=== PATIENT | female | born 1965 | race Caucasian/White ===

== ENCOUNTER 2017-02-05 08:37 | Emergency (ER) | payer MEDICAID ==
[~2017-02-05] VITALS: Ht 160 cm; Wt 88.0 kg
[~2017-02-05 08:37] MED LIST: AUG875 PO; IBUP-1542 PO
[2017-02-05 08:42] VITALS: Ht 160 cm; Wt 88.0 kg
[2017-02-05] MEDS ORDERED: ONDANSETRON (ODT) 4 MG TAB ODT STA (09:09)
[2017-02-05 09:27] LABS: ABNORMAL IP MESSAGE 1; BASOPHIL # 0.1 10^3/ul (0.0-0.1); EOSINOPHILS # 1.5 10^3/ul (0.0-0.5); HEMATOCRIT 34.5 % (37.0-47.0); HEMOGLOBIN 9.5 g/dl (12.0-16.0); LYMPHOCYTES % 21.9 % (15.0-51.0); MEAN CORPUSCULAR HEMOGLOBIN 17.8 pg (29.0-33.0); MEAN CORPUSCULAR HGB CONC 27.5 g/dl (32.0-37.0); MEAN CORPUSCULAR VOLUME 64.5 fl (82.0-101.0); MEAN PLATELET VOLUME 9.1 fl (7.4-10.4); MONOCYTE # 0.9 10^3/ul (0.3-0.9); NEUTROPHIL # 4.5 10^3/ul (1.6-7.5); NEUTROPHILS % 49.9 % (39.0-77.0); PLATELET COUNT 443 10^3/UL (140-415); RED BLOOD COUNT 5.35 10^6/ul (4.20-5.40); RED CELL DISTRIBUTION WIDTH 19.3 % (11.5-14.5); WHITE BLOOD COUNT 8.9 10^3/ul (4.8-10.8)
[2017-02-05 09:29] LABS: POSITIVE DIFF @See below
[2017-02-05 09:30] LABS: ADD UMIC NO; UR ASCORBIC ACID NEGATIVE (NEGATIVE); UR BILIRUBIN (Dip) NEGATIVE (NEGATIVE); UR BLOOD (Dip) NEGATIVE (NEGATIVE); UR CLARITY CLEAR (CLEAR); UR COLOR YELLOW (YELLOW); UR GLUCOSE (Dip) NEGATIVE (NEGATIVE); UR KETONES (Dip) NEGATIVE (NEGATIVE); UR LEUKOCYTE ESTERASE (Dip) NEGATIVE Leu/ul (NEGATIVE); UR NITRITE (Dip) NEGATIVE (NEGATIVE); UR SPECIFIC GRAVITY (Dip) 1.021 (1.003-1.030); UR TOTAL PROTEIN (Dip) NEGATIVE (NEGATIVE); UR UROBILINOGEN (Dip) NEGATIVE (NEGATIVE)
[2017-02-05] MEDS ORDERED: traMADol 50 MG TAB PO ONE (09:30)
--- NOTE | 2017-02-05 09:41 | ERD ---
ER Documentation Chief Complaint Chief Complaint Abdominal pain, nausea, vomiting HPI 51-year-old female presents with suprapubic pelvic pain associated nausea vomiting on and off for a week. Patient describes sharp pain is localized in the center of her lower abdominal region, she describes it to be pelvic pain. She reports nausea with intermittent nausea vomiting approximately 1 time a day for the last 4 days. She denies fevers or chills. She denies diarrhea, blood in stools. She denies vaginal bleeding, or abnormal vaginal discharge. ROS All systems reviewed and are negative except as per history of present illness. Medications Home Meds Active Scripts Ibuprofen* (Motrin*) 600 Mg Tab, 600 MG PO Q6, #30 TAB Prov:MIN VALENTINO PA-C 02/05/17 Ondansetron (Ondansetron Odt) 4 Mg Tab.rapdis, 4 MG PO Q6H Y for NAUSEA AND/OR VOMITING, #10 TAB Prov:MIN VALENTINO PA-C 02/05/17 Ferrous Sulfate* (Ferrous Sulfate*) 325 Mg Tabec, 325 MG PO BID, #100 TAB Prov:MIN VALENTINO PA-C 02/05/17 Amoxicillin-Clavulanate K* (Augmentin*) 875 Mg Tab, 875 MG PO BID for 5 Days, TAB Prov:VALERIA NICKERSON MD 04/28/15 Ibuprofen* (Motrin*) 600 Mg Tab, 600 MG PO Q6, #14 TAB Prov:VALERIA NICKERSON MD 04/28/15 Allergies Allergies: Coded Allergies: No Known Allergy (Unverified , 04/28/15) PMhx/Soc History of Surgery: No Anesthesia Reaction: No Hx Neurological Disorder: No Hx Respiratory Disorders: No Hx Cardiac Disorders: No Hx Psychiatric Problems: No Hx Miscellaneous Medical Probl: No Hx Alcohol Use: No Hx Substance Use: No Hx Tobacco Use: Yes Smoking Status: Current some day smoker Physical Exam Vitals Vital Signs Date Time Temp Pulse Resp B/P Pulse Ox O2 Delivery O2 Flow Rate FiO2 02/05/17 08:42 97.7 70 20 151/91 100 Physical Exam General: Well-developed, well-nourished. The patient appears in no acute distress. HEENT: Head is normocephalic, atraumatic. No scleral icterus. Neck: Supple. Nontender. Lungs: Clear to auscultation. Normal air movement. Heart: Regular rate and rhythm. S1 and S2 are normal. No murmurs, gallops, or rubs. Abdomen: Soft, suprapubic tenderness nondistended. Bowel sounds are normoactive.. McBurney's tenderness, negative Alatorre sign. Extremities: No clubbing or cyanosis. Normal pulses. Moving extremities x 4. No weakness. Neurologic: Alert and oriented 3. No focal deficits. Skin: Vitiligo present. Result Diagram: 02/05/1791902/05/1720 Results 24 hrs Laboratory Tests Test 02/05/17 09:20 White Blood Count 8.910^3/ul Red Blood Count 5.3510^6/ul Hemoglobin 9.5g/dl Hematocrit 34.5% Mean Corpuscular Volume 64.5fl Mean Corpuscular Hemoglobin 17.8pg Mean Corpuscular Hemoglobin Concent 27.5g/dl Red Cell Distribution Width 19.3% Platelet Count 27306^3/UL Mean Platelet Volume 9.1fl Neutrophils % 49.9% Lymphocytes % 21.9% Monocytes % 10.0% Eosinophils % 17.0% Basophils % 1.0% Nucleated Red Blood Cells % 0.0/100WBC Neutrophils # 4.510^3/ul Lymphocytes # 2.010^3/ul Monocytes # 0.910^3/ul Eosinophils # 1.510^3/ul Basophils # 0.110^3/ul Nucleated Red Blood Cells # 0.010^3/ul Urine Color YELLOW Urine Clarity CLEAR Urine pH 5.0 Urine Specific [place] 1.021 Urine Ketones NEGATIVEmg/dL Urine Nitrite NEGATIVEmg/dL Urine Bilirubin NEGATIVEmg/dL Urine Urobilinogen NEGATIVEmg/dL Urine Leukocyte Esterase NEGATIVELeu/ul Urine Hemoglobin NEGATIVEmg/dL Urine Glucose NEGATIVEmg/dL Urine Total Protein NEGATIVEmg/dl Sodium Level 142mmol/L Potassium Level 3.9mmol/L Chloride Level 108mmol/L Carbon Dioxide Level 25mmol/L Anion Gap 13 Blood Urea Nitrogen 13mg/dl Creatinine 0.71mg/dl Glucose Level 94mg/dl Calcium Level 8.6mg/dl Total Bilirubin 0.2mg/dl Direct Bilirubin 0.00mg/dl Indirect Bilirubin 0.2mg/dl Aspartate Amino Transf (AST/SGOT) 28IU/L Alanine Aminotransferase (ALT/SGPT) 53IU/L Alkaline Phosphatase 89IU/L Total Protein 7.3g/dl Albumin 4.1g/dl Globulin 3.20g/dl Albumin/Globulin Ratio 1.28 Lipase 63U/L Serum HCG, Qualitative NEGATIVE Current Medications Medications (Trade) Dose Ordered Sig/Orion Route PRN Reason Start Time Stop Time Status Last Admin Dose Admin Ondansetron HCl (Zofran Odt) 4 mg ONCE STAT ODT 02/05/17 09:09 02/05/17 09:10 DC 02/05/17 09:20 Tramadol HCl (Ultram) 50 mg ONCE ONCE PO 02/05/17 09:30 02/05/17 09:31 DC 02/05/17 09:22 DIAGNOSTIC IMAGING REPORT Patient: JAVIER ALCANTAR : 1965 Age: 51 Sex: F MR #: [id number] DOS: 02/05/17935 Ordering MD: MIN VALENTINO PA-C Location: [facility] Room/Bed: PROCEDURE: US Pelvis CLINICAL INDICATION: pelvic pain TECHNIQUE: Multiple sonographic images of the pelvis were obtained utilizing a transabdominal and endovaginal technique. The images were reviewed on a PACS workstation. COMPARISON: None. FINDINGS: The uterus measures 11.6 x 7.1 x 6.6 cm. The endometrial echo complex measures 10 mm in thickness. Several sub-centimeter Nabothian cysts are identified. There is a 2 cm anterior intramural fibroid, to the right of midline. There is a 3.6 cm anterior submucosal uterine fibroid at the level of the upper body without significant displacement of the endometrium. Bilateral ovaries are not visualized. There are no abnormal adnexal masses. No significant pelvic free fluid is identified. IMPRESSION: The endometrium measures 10 mm in thickness which can be within normal limits for a premenopausal/perimenopausal patient although it is thickened for a postmenopausal patient. Correlation with a detailed menstrual history is recommended. 2 uterine fibroids are identified measuring up to 3.6 cm. Bilateral ovaries are not visualized. There are no abnormal adnexal masses. RPTAT: EE Loc Dorcas, Physician Date Time Electronically viewed and signed by Loc Toscano Physician on 02/05/2017 10:23 RA/ CC: MIN VALENTINO PA-C Procedures/MDM 51-year-old female presents with lower suprapubic abdominal pain for a week now associated with nausea vomiting, the patient presents with suprapubic pain but urinalysis negative for infection. Clinically she does not have any signs of diverticulitis, acute appendicitis, her pain is been ongoing for a week now. There is no evidence of leukocytosis. Patient states that she does not have a primary care doctor, unknown baseline she is anemic with hemoglobin of 9.5, with microcytic anemia. Pelvic ultrasound shows 2 uterine fibroids approximately 3-1/2 cm. No evidence of adnexal masses. The patient will be started on ferrous sulfate, and ibuprofen and Zofran for symptoms. She is to follow-up with [facility] outpatient was given a list of clinics. Patient's blood pressure was elevated (>120/80) but appears stable without evidence of hypertension emergency or urgency. The patient was counseled about the risks of hypertension and urged to pursue outpatient monitoring and therapy within a week with their primary care physician. Departure Diagnosis: Primary Impression: Fibroid Additional Impressions: Anemia Nausea and vomiting Condition: Good MIN VALENTINO PA-C Feb 05, 2017 09:41
[2017-02-05 09:58] LABS: ALBUMIN 4.1 g/dl (3.3-4.9); ALBUMIN/GLOBULIN RATIO 1.28; BILIRUBIN,INDIRECT 0.2 mg/dl (0-1.1); BILIRUBIN,TOTAL 0.2 mg/dl (0.2-1.3); CALCIUM 8.6 mg/dl (8.4-10.2); CREATININE 0.71 mg/dl (0.44-1.00); POTASSIUM 3.9 mmol/L (3.5-5.1); TOTAL PROTEIN 7.3 g/dl (6.1-8.1)
--- NOTE | 2017-02-05 10:23 | RADRPT ---
PROCEDURE: US Pelvis CLINICAL INDICATION: pelvic pain TECHNIQUE: Multiple sonographic images of the pelvis were obtained utilizing a transabdominal and endovaginal technique. The images were reviewed on a PACS workstation. COMPARISON: None. FINDINGS: The uterus measures 11.6 x 7.1 x 6.6 cm. The endometrial echo complex measures 10 mm in thickness. Several sub-centimeter Nabothian cysts are identified. There is a 2 cm anterior intramural fibroid, to the right of midline. There is a 3.6 cm anterior submucosal uterine fibroid at the level of the upper body without signifi cant displacement of the endometrium. Bilateral ovaries are not visualized. There are no abnormal adnexal masses. No significant pelvic free fluid is identified. IMPRESSION: The endometrium measures 10 mm in thickness which can be within normal limits for a premenopausal/pe rimenopausal patient although it is thickened for a postmenopausal patient. Correlation with a detai led menstrual history is recommended. 2 uterine fibroids are identified measuring up to 3.6 cm. Bilateral ovaries are not visualized. There are no abnormal adnexal masses. RPTAT: EE Physician Amara Date Time Electronically viewed and signed by Physician Amara on 02/05/2017 10:23 RA/
[2017-02-05] MEDS ORDERED: IBUP-1542 PO (10:29)
[2017-02-05] MEDS ORDERED: FER325 PO (10:29)
[2017-02-05] MEDS ORDERED: ONDA4TAB14 PO (10:29)
[2017-02-05 10:57] VITALS: BP 132/74; PULSE 62; RESP 18; TEMP 97.6
== END 2017-02-05 10:59 | disposition home or self-care (01) ==
LOC: FTE 08:37
DX: D25.9 Leiomyoma of uterus, unspecified (principal); R11.2 Nausea with vomiting, unspecified; D64.9 Anemia, unspecified; F17.210 Nicotine dependence, cigarettes, uncomplicated
CPT/HCPCS: 36415; 76830; 76856; 80053; 81003; 83690; 84703; 85025; Z7502; Z7610

== ENCOUNTER 2017-04-10 10:31 | Emergency (ER) | payer MEDICAID ==
[~2017-04-10] VITALS: Wt 88.0 kg
[~2017-04-10 10:31] MED LIST changes: +FER325 PO; +ONDA4TAB14 PO
[2017-04-10] MEDS ORDERED: IBUP-1542 PO (12:00)
[2017-04-10] MEDS ORDERED: BENZ100C70 PO (12:00)
[2017-04-10] MEDS ORDERED: CETI10CA PO (12:00)
[2017-04-10] MEDS ORDERED: NASO17 NASAL (12:00)
--- NOTE | 2017-04-10 12:08 | ERD ---
ER Documentation Chief Complaint Chief Complaint cough since last night HPI 51 year old female comes in with a cough, sore throat, congestion starting last night. Patient has had nasal discharge, sore throat, dry cough. No chest pain , shortness breath or fevers or chills. ROS All systems reviewed and are negative except as per history of present illness. Medications Home Meds Active Scripts Ibuprofen* (Motrin*) 600 Mg Tab, 600 MG PO Q6, #30 TAB Prov:MIN VALENTINO PA-C 04/10/17 Benzonatate* (Tessalon Perle*) 100 Mg Capsule, 100 MG PO Q8H Y for COUGH, #30 CAP Prov:MIN VALENTINO PA-C 04/10/17 Cetirizine Hcl* (Zyrtec*) 10 Mg Capsule, 10 MG PO DAILY, #10 TAB.CHEW Prov:MIN VALENTINO PA-C 04/10/17 Mometasone Furoate* (Nasonex*) 50 Mcg/[place] - 17 Gm [place].pump, 1 SPRAY NASAL BID, #1 BOTTLE IN EACH NOSTRIL Prov:MIN VALENTINO PA-C 04/10/17 Ibuprofen* (Motrin*) 600 Mg Tab, 600 MG PO Q6, #30 TAB Prov:MIN VALENTINO PA-C 02/05/17 Ondansetron (Ondansetron Odt) 4 Mg Tab.rapdis, 4 MG PO Q6H Y for NAUSEA AND/OR VOMITING, #10 TAB Prov:MIN VALENTINO PA-C 02/05/17 Ferrous Sulfate* (Ferrous Sulfate*) 325 Mg Tabec, 325 MG PO BID, #100 TAB Prov:MIN VALENTINO PA-C 02/05/17 Amoxicillin-Clavulanate K* (Augmentin*) 875 Mg Tab, 875 MG PO BID for 5 Days, TAB Prov:VALERIA NICKERSON MD 04/28/15 Ibuprofen* (Motrin*) 600 Mg Tab, 600 MG PO Q6, #14 TAB Prov:VALERIA NICKERSON MD 04/28/15 Allergies Allergies: Coded Allergies: No Known Allergy (Unverified , 04/28/15) PMhx/Soc Medical and Surgical Hx: pt denies Medical Hx, pt denies Surgical Hx History of Surgery: No Anesthesia Reaction: No Hx Neurological Disorder: No Hx Respiratory Disorders: No Hx Cardiac Disorders: No Hx Psychiatric Problems: No Hx Miscellaneous Medical Probl: No Hx Alcohol Use: No Hx Substance Use: No Hx Tobacco Use: No Smoking Status: Never smoker Physical Exam Vitals Vital Signs Date Time Temp Pulse Resp B/P Pulse Ox O2 Delivery O2 Flow Rate FiO2 04/10/17 10:34 98.2 98 18 140/77 99 Physical Exam General: Well-developed, well-nourished. The patient appears in no acute distress. HEENT: Head is normocephalic, atraumatic. No scleral icterus. Pupils are equal , round, and reactive. Oral mucous membranes are moist. No pharyngeal erythema. Neck: Supple. Nontender. Lungs: Clear to auscultation. Normal air movement. Heart: Regular rate and rhythm. S1 and S2 are normal. No murmurs, gallops, or rubs. Abdomen: Soft, nontender, nondistended. Bowel sounds are normoactive. Extremities: No clubbing or cyanosis. Normal pulses. Moving extremities x 4. No weakness. Neurologic: Alert and oriented 3. No focal deficits. Skin: Normal turgor. No rash or lesions. Procedures/MDM The patient is a 51-year-old female who comes in with an acute upper respiratory infection, presumed viral. The patient has a differential diagnosis of a viral upper respiratory infection, bacterial upper respiratory infection, bronchitis, pneumonia, pharyngitis, laryngitis, epiglottitis, croup, pneumonia. Patient has a normal pulmonary examination, clear breath sounds, normal pulse oximetry, with no corrective measures needed at this time. Fluids, rest, antipyretics were encouraged. Departure Diagnosis: Primary Impression: Cough Condition: Good Patient Instructions: Uri, Viral, No Abx (Adult) MIN VALENTINO PA-C Apr 10, 2017 12:08
== END 2017-04-10 12:10 | disposition home or self-care (01) ==
LOC: FTE 10:31
DX: J06.9 Acute upper respiratory infection, unspecified (principal)
CPT/HCPCS: 99284